=== PATIENT | female | born 1980 | race Caucasian/White ===

== ENCOUNTER 2016-12-05 18:53 | Emergency (ER) | payer OTHER ==
[2016-12-05] MEDS ORDERED: ASPIRIN CHEWTAB 81 MG TABLET ONE (19:44)
[2016-12-05 19:57] LABS: ABSOLUTE NEUTROPHIL COUNT 3.6 K/mm3 (1.8-7.7); BASO % 0.5 % (0.2-1.0); EOS % 0.5 % (0.9-2.9); HEMATOCRIT 44.5 % (37.0-47.0); HEMOGLOBIN 14.6 gm/l (12.0-16.0); IMM NEUT% 0.3 % (0-1); LYMPH # 1.6 (1.0-4.8); LYMPH % 26.8 % (15-45); MEAN CELL VOLUME 90.8 fl (81.0-99.0); MEAN CORPUSCULAR HEMOGLOBIN 29.8 pg (27.0-31.0); MEAN CORPUSCULAR HGB CONC 32.8 g/dl (33.0-37.0); MEAN PLATELET VOLUME 10.7 fl (7.4-10.4); MONO # 0.6 (0.0-0.8); NEUT % 61.9 % (43-75); PLATELET COUNT 276 K/mm3 (130-400); RED CELL DISTRIBUTION WIDTH 13.2 % (11.5-14.5)
[2016-12-05 20:27] LABS: TROPONIN I < 0.01 ng/ml (0.0-0.06)
[2016-12-05 20:30] LABS: CKMB ISOENZYME 0.4 ng/ml (0.6-6.3)
[2016-12-05] MEDS ORDERED: IBUPROFEN 800 MG TABLET ONE (20:36)
--- NOTE | 2016-12-05 20:41 | RAD ---
History: Chest pain for one day. Comparison: 06/08/2016. Technique: 2 views Findings: The soft tissue and bony structures are unremarkable. The heart size is appropriate. No infiltrate, effusion or pneumothorax is observed. The hilar and mediastinal structures are normal. Impression: 1. A negative 2 view chest
[2016-12-05 21:49] LABS: ALBUMIN 4.1 gm/dL (3.5-5.7)
[2016-12-05 21:56] LABS: ALB/GLOB RATIO 1.4 (>1.0); CALCIUM 9.2 mg/dL (8.6-10.3)
== END 2016-12-05 20:56 | disposition home or self-care (01) ==
LOC: ED 18:53
DX: S51.851A Open bite of right forearm, initial encounter (principal); W54.0XXA Bitten by dog, initial encounter; Y92.9 Unspecified place or not applicable
CPT/HCPCS: 83690; 85025; 82553; 80053; 84484; 71020; 99284 ×2; 93005; A9270 ×2